=== PATIENT | male | born 1965 | race Hispanic/Latino ===

== ENCOUNTER 2019-06-18 15:33 | Emergency (ER) | payer MEDICARE ==
[~2019-06-18] VITALS: Ht 167.6 cm; Wt 102.1 kg
[~2019-06-18 15:33] MED LIST: ASPIRIN EC81 MG PO; ATORVASTATIN CA20 MG PO; LEVETIRACETAM750 MG PO; METFORMIN HCL500 MG PO; PAROXETINE HCL20 MG PO; TAMSULOSIN HCL0.4 MG PO
--- OUTSIDE RECORDS SUMMARY | 2019-06-18 15:36 | XMS REPORT ---
Author [facility] Address Unknown Phone Unavailable Care Team Providers Care Community Engagement Coordinator Name Role Phone HARRIETT FELIX Unavailable Unavailable Problems This patient has no known problems. Allergies, Adverse Reactions, Alerts This patient has no known allergies or adverse reactions. Medications This patient has no known medications. Results Test Description Test Time Test Comments Text Results Atomic Results Result Comments US RENAL RETROPERITONEAL COMP [place] [address] Patient Name: AMY RIOS MR #: [id number] : 1965 Age/Sex: 51/M Req #: [id number] Adm Physician: Ordered by: HARRIETT FELIX MD Report #: [id number] Location: Room/Bed: Procedure: [id number] US/US RENAL RETROPERITONEAL COMP Exam Date: 01/11/17 Exam Time: 1655 REPORT STATUS: Signed PROCEDURE: US RETROPERITONEAL ( KIDNEY ). COMPARISON: Renal ultrasound 10/23/2013. INDICATIONS: Neurogenic bladder. TECHNIQUE: Duncan-scale and color sonographic images of the bilateral kidneys and bladder where obtained in transverse and longitudinal planes. FINDINGS: RIGHT KIDNEY: 11.8 cm, cortex 1.7 cm Cysts: None. Solid masses: None. Stones: None. Hydronephrosis: None. Echogenicity: Increased LEFT KIDNEY: 12.7 cm, cortex 1.7 cm Cysts: None. Solid masses: None. Stones: None. Hydronephrosis: None. Echogenicity: Increased Bladder: Normal contour. Bilateral ureteral jets are visualized. CONCLUSION: No acute sonographic abnormality. Bilateral increased renal cortical echogenicity may represent medical renal disease. Dictated by: Jose Alfredo Merino M.D. on 01/11/2017 at 18:58 Electronically approved by: Jose Alfredo Merino M.D. on 01/11/2017 at 18:58 Dictated By: JOSE ALFREDO MERINO MD 57 Transcribed By: SEGUNDO on 01/11/171857 COPY TO: HARRIETT FELIX MD
--- NOTE | 2019-06-18 16:49 | NUR ---
PATIENT GIVEN WARM BLANKET
--- NOTE | 2019-06-18 17:42 | Diagnostic Imaging Report ---
History:Fall, left-sided weakness Comparison studies: None Technique: Axial images were obtained from the skull base to the vertex. Coronal and sagittal images reconstructed from the axial data. Dose modulation, iterative reconstruction, and/or weight based adjustment of the mA/kV was utilized to reduce the radiation dose to as low as reasonably achievable. Intravenous contrast: None Findings: Scalp/skull: Old right hemispheric craniotomy defects are associated with with an overlying plate and screws. Otherwise, no abnormalities. Extra-axial spaces: No masses. No fluid collections. Brain sulci: See parenchyma below Ventricles: Seen parenchyma below. No acute hydrocephalus. 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 It is associated with right hemispheric volume loss, gliotic changes in the underlying white matter, with compensatory dilatation of the right lateral ventricle and with Wallerian degeneration of the right cerebral peduncle. No masses, hemorrhage, acute or additional chronic cortical vascular insults. Sellar/suprasellar region: No abnormalities. Craniocervical junction: Patent foramen magnum. No Chiari one malformation. Incidental findings: Atherosclerotic calcifications in the carotid siphons . Impression: No acute intracranial abnormalities. Chronic findings: 1. Right hemispheric craniotomy 2. 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 Signed by: Dr. Akash Navarrete M.D. on 06/18/2019 5:39 PM
[2019-06-18 18:04] VITALS: BP 116/63
== END 2019-06-18 18:20 | disposition home or self-care (01) ==
LOC: ER 15:33
DX: S00.83XA Contusion of other part of head, initial encounter (principal); W18.11XA Fall from or off toilet without subsequent striking against object, initial encounter; Y92.002 Bathroom of unspecified non-institutional (private) residence as the place of occurrence of the external cause; I69.998 Other sequelae following unspecified cerebrovascular disease; I69.954 Hemiplegia and hemiparesis following unspecified cerebrovascular disease affecting left non-dominant side; I10 Essential (primary) hypertension
CPT/HCPCS: 70450; 99283